=== PATIENT | female | born 1995 | race Caucasian/White ===

== ENCOUNTER 2023-11-13 11:17 | Outpatient (CLI) | payer MEDICAID, SELFPAY | END 2023-11-13 11:18 | disposition home or self-care (01) | PROVIDERS: Visit Provider Obstetrics & Gynecology | DX: G70.00 Myasthenia gravis without (acute) exacerbation (principal) | CPT/HCPCS: 84443 ==

== ENCOUNTER 2024-06-16 07:58 | Outpatient (CLI) | payer MEDICAID, SELFPAY ==
--- NOTE | 2024-06-16 08:15 | CRLHL7_ITS ---
For Patients: As a result of the Century Cures Act, medical imaging exams and procedure reports are released immediately into your electronic medical record. You may view this report before your referring provider. If you have questions, please contact your health care provider. OB ULTRASOUND INDICATION: Dating and viability. TECHNIQUE: Real time harmon scale imaging of the fetus was performed. Transvaginal. LMP: 04/16/2024. CHERIE by LMP: 01/21/2025. w, 5 d. Previous US: Yes 06/08/2024. CHERIE by US: 01/25/2025. GA: 7 w, 0 d. CRL: 1.7 cm. 8 w 0 d. CHERIE: 01/26/2025. FHR: 167BPM. Gestational sac: 3.2 cm. Appears within normal limits. Yolk sac: 3.7 mm. Appears within normal limits. Right ovary: Within normal limits. 5.1 x 4.2 x 5 cm. CL. Left ovary: Within normal limits. 3.2 x 1.9 x 2.5 cm. IMPRESSION: 1. Single living intrauterine measuring 8 weeks 0 days and sonographic due date 01/26/2025. 2. Corpus luteal right ovarian cyst measures 4.2 x 3.6 x 3.7 cm. 3. Subchorionic hemorrhage measures 4.3 x 0.4 x 2.0 cm. Gabe Castellanos M.D. Diagnostic Radiologist [email or web address] RAUL/nicho JR/Dictated by: Gabe Castellanos MD @ 06/16/2024 9:10:00 AM (Electronically Signed)
== END 2024-06-16 07:59 | disposition home or self-care (01) ==
LOC: US 08:00
PROVIDERS: Visit Provider Physician Assistant
DX: Z34.91 Encounter for supervision of normal pregnancy, unspecified, first trimester (principal); O20.9 Hemorrhage in early pregnancy, unspecified; O34.81 Maternal care for other abnormalities of pelvic organs, first trimester; N83.11 Corpus luteum cyst of right ovary; Z3A.08 8 weeks gestation of pregnancy
CPT/HCPCS: 76817; 83021; 86592; 86703; 86704; 86706; 86762; 86787; 86803; 86850; 86900; 86901; 87086; 87340; 87491; 87591